=== PATIENT | male | born 1980 | race Caucasian/White ===

== ENCOUNTER 2017-12-04 22:03 | Emergency (ER) | payer MEDICAID ==
[2017-12-05] MEDS: CLINDAMYCIN 300 MG CAP PO (00:46)
[2017-12-05] MEDS: HYDROCODONE/APAP (10/325) TAB PO (00:46)
== END 2017-12-05 01:10 | disposition home or self-care (01) ==
LOC: FTE 22:03
DX: K04.7 Periapical abscess without sinus (principal); F17.210 Nicotine dependence, cigarettes, uncomplicated
CPT/HCPCS: 99284; Z7502

== ENCOUNTER 2018-06-26 17:26 | Emergency (ER) | payer MEDICAID ==
[2018-06-26] MEDS: ONDANSETRON 4 MG INJ IV (18:44)
[2018-06-26] MEDS: SOD CHLORIDE 0.9% 1,000 ML IV (18:44)
[2018-06-26 18:48] LABS: ADD MAN DIFF? NO
[2018-06-26 18:50] LABS: WHITE BLOOD COUNT 22.5 10^3/ul (4.8-10.8)
[2018-06-26 18:50] LABS: BASOPHIL # 0.1 10^3/ul (0.0-0.1); BASOPHILS % 0.3 % (0.0-2.0); EOSINOPHILS # 0.1 10^3/ul (0.0-0.5); EOSINOPHILS % 0.6 % (0.0-7.0); HEMATOCRIT 45.1 % (42.0-52.0); HEMOGLOBIN 15.5 g/dl (14.0-18.0); LYMPHOCYTES % 4.4 % (15.0-51.0); MEAN CORPUSCULAR HEMOGLOBIN 29.4 pg (29.0-33.0); MEAN CORPUSCULAR HGB CONC 34.4 g/dl (32.0-37.0); MEAN CORPUSCULAR VOLUME 85.6 fl (82.0-101.0); MONOCYTE # 1.3 10^3/ul (0.3-0.9); MONOCYTES % 5.8 % (0.0-11.0); NEUTROPHIL # 19.9 10^3/ul (1.6-7.5); NEUTROPHILS % 88.2 % (39.0-77.0); PLATELET COUNT 383 10^3/UL (140-415); RED BLOOD COUNT 5.27 10^6/ul (4.70-6.10); RED CELL DISTRIBUTION WIDTH 13.2 % (11.5-14.5)
[2018-06-26 19:10] LABS: ALANINE AMINOTRANSFERASE 86 IU/L (13-69); ALBUMIN 4.6 g/dl (3.3-4.9); ALBUMIN/GLOBULIN RATIO 1.24; ALKALINE PHOSPHATASE 83 IU/L (42-121); ANION GAP 18 (8-16); ASPARTATE AMINO TRANSFERASE 58 IU/L (15-46); BILIRUBIN,INDIRECT 0.5 mg/dl (0-1.1); BILIRUBIN,TOTAL 0.5 mg/dl (0.2-1.3); BLOOD UREA NITROGEN 17 mg/dl (7-20); CARBON DIOXIDE 26 mmol/L (21-31); CHLORIDE 103 mmol/L (97-110); CREATININE 1.09 mg/dl (0.61-1.24); GLUCOSE 127 mg/dl (70-220); LIPASE 91 U/L (23-300); POTASSIUM 3.7 mmol/L (3.5-5.1); SODIUM 143 mmol/L (135-144); TOTAL PROTEIN 8.3 g/dl (6.1-8.1)
== END 2018-06-26 20:13 | disposition home or self-care (01) ==
LOC: FTE 17:26
DX: R11.10 Vomiting, unspecified (principal); R19.7 Diarrhea, unspecified; R10.84 Generalized abdominal pain; F17.210 Nicotine dependence, cigarettes, uncomplicated
CPT/HCPCS: 36415; 80053; 83690; 85025; 96374; 99284-25

== ENCOUNTER 2018-06-27 07:57 | Emergency (ER) | payer MEDICAID | END 2018-06-27 08:40 | disposition home or self-care (01) | LOC: FTE 07:57 | DX: Z00.00 Encounter for general adult medical examination without abnormal findings (principal); F17.210 Nicotine dependence, cigarettes, uncomplicated | CPT/HCPCS: 99282 ==

== ENCOUNTER 2019-03-03 11:48 | Emergency (ER) | payer MEDICAID ==
[2019-03-03 12:42] LABS: ADD MAN DIFF? NO
[2019-03-03] MEDS: ASPIRIN 325 MG TAB PO (12:48)
[2019-03-03 12:56] LABS: BASOPHIL # 0.1 10^3/ul (0.0-0.1); BASOPHILS % 0.5 % (0.0-2.0); EOSINOPHILS # 0.2 10^3/ul (0.0-0.5); EOSINOPHILS % 2.4 % (0.0-7.0); HEMATOCRIT 39.3 % (42.0-52.0); HEMOGLOBIN 13.4 g/dl (14.0-18.0); LYMPHOCYTES # 2.7 10^3/ul (0.8-2.9); MEAN CORPUSCULAR HEMOGLOBIN 29.1 pg (29.0-33.0); MEAN CORPUSCULAR HGB CONC 34.1 g/dl (32.0-37.0); MEAN CORPUSCULAR VOLUME 85.4 fl (82.0-101.0); MEAN PLATELET VOLUME 9.3 fl (7.4-10.4); MONOCYTE # 0.7 10^3/ul (0.3-0.9); MONOCYTES % 7.5 % (0.0-11.0); NEUTROPHIL # 5.9 10^3/ul (1.6-7.5); PLATELET COUNT 347 10^3/UL (140-415); RED CELL DISTRIBUTION WIDTH 13.2 % (11.5-14.5)
[2019-03-03 12:56] LABS: WHITE BLOOD COUNT 9.7 10^3/ul (4.8-10.8)
[2019-03-03] MEDS ORDERED: NITROGLYCERIN (SL) 0.4 MG TAB SL (13:00)
[2019-03-03] MEDS: SOD CHLORIDE 0.9% 1,000 ML IV (13:06)
[2019-03-03 13:07] LABS: ALANINE AMINOTRANSFERASE 87 IU/L (13-69); ALBUMIN 4.1 g/dl (3.3-4.9); ALBUMIN/GLOBULIN RATIO 1.46; ALKALINE PHOSPHATASE 92 IU/L (42-121); ANION GAP 8 (5-13); ASPARTATE AMINO TRANSFERASE 44 IU/L (15-46); BILIRUBIN,INDIRECT 0.4 mg/dl (0-1.1); BILIRUBIN,TOTAL 0.4 mg/dl (0.2-1.3); BLOOD UREA NITROGEN 15 mg/dl (7-20); CALCIUM 9.1 mg/dl (8.4-10.2); CARBON DIOXIDE 27 mmol/L (21-31); CHLORIDE 106 mmol/L (97-110); CREATINE KINASE 223 IU/L (23-200); CREATININE 0.68 mg/dl (0.61-1.24); Estimated GFR > 60 mL/min (>60); GLUCOSE 137 mg/dl (70-220); POTASSIUM 3.1 mmol/L (3.5-5.1); SODIUM 141 mmol/L (135-144); TOTAL PROTEIN 6.9 g/dl (6.1-8.1)
[2019-03-03] MEDS: morphine 4 MG/ML VIAL IV (13:07)
[2019-03-03] MEDS: ONDANSETRON 4 MG INJ IV (13:15)
[2019-03-03 13:16] LABS: CK INDEX 1.3
[2019-03-03 13:19] LABS: CK-MB 2.98 ng/ml (0.0-2.4)
[2019-03-03 13:20] LABS: B-TYPE NATRIURETIC PEPTIDE 27 PG/ML (0-125); INR 0.96; PROTIME 12.9 Sec (11.9-14.9); TROPONIN-I < 0.012 ng/ml (0.000-0.120)
[2019-03-03 13:21] LABS: PARTIAL THROMBOPLASTIN TIME 27.3 Sec (23.0-35.0)
[2019-03-03] MEDS: KETOROLAC 30 MG INJ IV (14:46)
[2019-03-03] MEDS: IOHEXOL 100 ML (16:37)
[2019-03-03] MEDS: SOD CHLORIDE 0.9% 100 ML (16:37)
[2019-03-03 16:54] LABS: TROPONIN-I < 0.012 ng/ml (0.000-0.120)
== END 2019-03-03 18:06 | disposition home or self-care (01) ==
LOC: E/R 18:06
DX: R09.1 Pleurisy (principal); F17.210 Nicotine dependence, cigarettes, uncomplicated; R11.0 Nausea
CPT/HCPCS: 71045; 71275; 76705; 80053; 82550; 82553; 83880; 84484; 85025; 85610; 85730; 93005; 96374; 96375; 99285-25